=== PATIENT | male | born 1985 | race Caucasian/White ===

== ENCOUNTER 2017-06-15 11:48 | Emergency (ER) | payer SELFPAY ==
--- NOTE | 2017-06-15 13:09 | ER Document Report ---
ED Medical Screen (RME) - General Chief Complaint: Testicular Swelling Stated Complaint: RASH Time Seen by Provider: 06/15/17 13:07 Notes: pt states he has rash, pain and discoloration of his testicles. [facility] and [facility] him it was a [facility]D. He states he is a virgin and there is no way he can have an STD so he came here. TRAVEL OUTSIDE OF THE [place] IN LAST 30 DAYS: No - Related Data Allergies/Adverse Reactions: No Known Allergies Allergy (Unverified 06/15/17 11:49) Past Medical History - Social History Chew tobacco use (# tins/day): No Frequency of alcohol use: None Drug Abuse: None - Past Medical History Cardiac Medical History: Reports: Hx Hypertension - no meds Renal/ Medical History: Denies: Hx Peritoneal Dialysis Physical Exam - Vital signs Vitals: Temp Pulse Resp BP Pulse Ox 98.5 F 103 H 20 156/89 H 96 06/15/17 12:03 06/15/17 12:03 06/15/17 12:03 06/15/17 12:03 06/15/17 12:03 Course - Vital Signs Vital signs: Temp Pulse Resp BP Pulse Ox 98.5 F 103 H 20 156/89 H 96 06/15/17 12:03 06/15/17 12:03 06/15/17 12:03 06/15/17 12:03 06/15/17 12:03
--- NOTE | 2017-06-15 13:44 | ER Document Report ---
ED General - General Chief Complaint: Testicular Swelling Stated Complaint: RASH Time Seen by Provider: 06/15/17 13:07 Mode of Arrival: Ambulatory Information source: Patient Notes: 31-year-old male who has never had sexual intercourse presents with complaints of testicular redness rash. He denies any pain. Patient notes there is swelling in the area. Patient was seen at an urgent care told he had an STD. Patient denies any medical problems otherwise TRAVEL OUTSIDE OF THE [place] IN LAST 30 DAYS: No - HPI Onset: Last week Onset/Duration: Persistent Quality of pain: No pain Severity: Moderate Pain Level: Denies Associated symptoms: Other Exacerbated by: Denies Relieved by: Denies Similar symptoms previously: No Recently seen / treated by doctor: Yes - Related Data Allergies/Adverse Reactions: No Known Allergies Allergy (Unverified 06/15/17 11:49) Past Medical History - Social History Smoking Status: Never Smoker Cigarette use (# per day): No Chew tobacco use (# tins/day): No Smoking Education Provided: No Frequency of alcohol use: None Drug Abuse: None Family History: Reviewed & Not Pertinent Patient has suicidal ideation: No Patient has homicidal ideation: No - Past Medical History Cardiac Medical History: Reports: Hx Hypertension - no meds Renal/ Medical History: Denies: Hx Peritoneal Dialysis Review of Systems - Review of Systems Notes: REVIEW OF SYSTEMS: CONSTITUTIONAL : Denies fever, chills, or sweats. Denies recent illness. EENT: Denies eye, ear, throat, or mouth pain or symptoms. Denies nasal or sinus congestion or discharge. Denies throat, tongue, or mouth swelling or difficulty swallowing. CARDIOVASCULAR: Denies chest pain. Denies palpitations or racing or irregular heart beat. Denies ankle edema. RESPIRATORY: Denies cough, cold, or chest congestion. Denies shortness of breath, difficulty breathing, or wheezing. GASTROINTESTINAL: Denies abdominal pain or distention. Denies nausea, vomiting , or diarrhea. Denies blood in vomitus, stools, or per rectum. Denies black, tarry stools. Denies constipation. GENITOURINARY: Denies difficulty urinating, painful urination, burning, frequency, blood in urine, or discharge. MUSCULOSKELETAL: Denies back or neck pain or stiffness. Denies joint pain or swelling. SKIN: admits to rash HEMATOLOGIC : Denies easy bruising or bleeding. LYMPHATIC: Denies swollen, enlarged glands. NEUROLOGICAL: Denies confusion or altered mental status. Denies passing out or loss of consciousness. Denies dizziness or lightheadedness. Denies headache. Denies weakness or paralysis or loss of use of either side. Denies problems with gait or speech. Denies sensory loss, numbness, or tingling. Denies seizures. PSYCHIATRIC: Denies anxiety or stress. Denies depression, suicidal ideation, or homicidal ideation. ALL OTHER SYSTEMS REVIEWED AND NEGATIVE. Dictation was performed using [employer] voice recognition software PHYSICAL EXAMINATION: GENERAL: Well-appearing, well-nourished and in no acute distress. HEAD: Atraumatic, normocephalic. EYES: Pupils equal round and reactive to light, extraocular movements intact, sclera anicteric, conjunctiva are normal. ENT: Nares patent, oropharynx clear without exudates. Moist mucous membranes. NECK: Normal range of motion, supple without lymphadenopathy LUNGS: Breath sounds clear to auscultation bilaterally and equal. No wheezes rales or rhonchi. HEART: Regular rate and rhythm without murmurs ABDOMEN: Soft, nontender, nondistended abdomen. No guarding, no rebound. No masses appreciated. Musculoskeletal: Normal range of motion, no pitting or edema. No cyanosis. NEUROLOGICAL: Cranial nerves grossly intact. Normal speech, normal gait. Normal sensory, motor exams PSYCH: Normal mood, normal affect. SKIN: testicular and inguinal erythema consistant with candidal infection , no warmth, drainage or tenderness ocncerning for fourniers Physical Exam - Vital signs Vitals: Temp Pulse Resp BP Pulse Ox 98.5 F 103 H 20 156/89 H 96 06/15/17 12:03 06/15/17 12:03 06/15/17 12:03 06/15/17 12:03 06/15/17 12:03 Course - Re-evaluation Re-evalutation: 06/15/17 13:43 Dr Danielle garcia , concerns for fourniers vs candidiasis 06/15/17 14:23 Patient's blood work is consistent with a new onset diabetic, blood sugars 384, he will be given insulin, hemoglobin A1c is pending, we have ruled out Adilson' s and will treat for the yeast infection 06/15/17 16:14 After given insulin patient's blood sugar has improved significantly, his hemoglobin A1c is elevated, I do believe he will require both metformin and insulin but the patient wishes to defer on any injections at this time, I explained risks and benefits, Patient will be given caring for [facility] to follow-up with as well After performing a Medical Screening Examination, I estimate there is LOW risk for any life threatening rash. At this time the patient looks extremely well and there are no signs of systemic infection, however this may change at any time and the rash may change. I have reevaluated this patient multiple times and no significant life threatening changes are noted. The patient and I have discussed the diagnosis and risks, and we agree with discharging home with close follow-up with the understanding that symptoms and presentations can change. We also discussed returning to the Emergency Department immediately if new or worsening symptoms occur. We have discussed the symptoms which are most concerning (e.g., changing or worsening pain, fever, numbness, weakness, cool or painful digits) that necessitate immediate return. - Vital Signs Vital signs: Temp Pulse Resp BP Pulse Ox 98.5 F 87 16 150/93 H 97 06/15/17 12:03 06/15/17 15:46 06/15/17 15:46 06/15/17 15:46 06/15/17 15:46 - Laboratory Result Diagrams: 06/15/17 13:25 06/15/17 13:25 Laboratory results interpreted by me: 06/15/17 06/15/17 06/15/17 13:25 13:25 13:25 WBC 10.9 H Absolute Neutrophils 8.3 H Glucose 384 H POC Glucose Hemoglobin A1c % Direct Bilirubin 0.5 H Urine Protein 30 H Urine Glucose (UA) >=500 H Urine Ketones TRACE H Urine Blood SMALL H Ur Leukocyte Esterase SMALL H 06/15/17 06/15/17 13:25 15:55 WBC Absolute Neutrophils Glucose POC Glucose 260 H Hemoglobin A1c % 11.2 H Direct Bilirubin Urine Protein Urine Glucose (UA) Urine Ketones Urine Blood Ur Leukocyte Esterase Critical Care Note - Critical Care Note Total time excluding time spent on procedures (mins): 37 Comments: 37 minutes of critical care time spent in direct contact evaluating and reevaluating the patient, treating symptoms, reviewing labs and studies and speaking with family and consultants excluding any procedures Discharge - Discharge Clinical Impression: Yeast infection Diabetes Qualifiers: Diabetes mellitus type: type 2 Diabetes mellitus complication status: with skin complications Diabetes mellitus complication detail: with other skin complication Diabetes mellitus termite helper insulin use: without termite helper use Qualified Code(s): E11.628 - Type 2 diabetes mellitus with other skin complications Condition: Stable Disposition: HOME, SELF-CARE Instructions: Diabetes ([facility]), Control of Diabetes During Illness ([facility]) Prescriptions: Metformin HCl 1,000 mg PO BID #60 tablet Nystatin 30 gm TP BID 30 Days oint...g. Forms: Return to Work Referrals: LÓPEZ OCHOA MD [NO LOCAL MD] - Follow up tomorrow
[2017-06-15 13:45] LABS: ABSOLUTE BASOPHILS # (AUTO) 0.1 10^3/uL (0.0-0.2); ABSOLUTE EOSINOPHILS # (AUTO) 0.1 10^3/uL (0.0-0.6); ABSOLUTE LYMPHOCYTES (AUTO) 1.8 10^3/uL (0.5-4.7); ABSOLUTE MONOCYTES (AUTO) 0.7 10^3/uL (0.1-1.4); ABSOLUTE NEUT (AUTO) 8.3 10^3/uL (1.7-8.2); BASOPHILS % (AUTO) 0.8 % (0-2); EOSINOPHILS % (AUTO) 1.2 % (0-6); HEMATOCRIT 44.8 % (37.9-51.0); HEMOGLOBIN 15.1 g/dL (13.5-17.0); MEAN CORPUSCULAR HEMOGLOBIN 27.7 pg (27.0-33.4); MEAN CORPUSCULAR HGB CONC 33.7 g/dL (32.0-36.0); MEAN CORPUSCULAR VOLUME 82 fl (80-97); MONOCYTES % (AUTO) 6.3 % (3-13); PLATELET COUNT 218 10^3/uL (150-450); RED BLOOD COUNT 5.45 10^6/uL (4.35-5.55); SEGMENTED NEUTROPHILS % (AUTO) 75.7 % (42-78); TOTAL CELLS COUNTED % (AUTO) 100 %; WHITE BLOOD COUNT 10.9 10^3/uL (4.0-10.5)
[2017-06-15 13:51] LABS: APPEARANCE,URINE SLIGHTLY-CLOUDY; BILIRUBIN,URINE NEGATIVE (NEGATIVE); COLOR,URINE YELLOW; GLUCOSE, URINE >=500 mg/dL (NEGATIVE); KETONES,URINE TRACE mg/dL (NEGATIVE); LEUKOCYTE ESTERASE,URINE SMALL (NEGATIVE); NITRITE,URINE NEGATIVE (NEGATIVE); PROTEIN,URINE 30 mg/dL (NEGATIVE); URINE SPECIFIC GRAVITY 1.037; UROBILINOGEN,URINE NEGATIVE mg/dL (<2.0)
[2017-06-15 14:06] LABS: ALANINE AMINOTRANSFERASE 58 U/L (21-72); ALBUMIN 4.2 g/dL (3.5-5.0); ALKALINE PHOSPHATASE 109 U/L (38-126); ANION GAP 13 (5-19); ASPARTATE AMINO TRANSFERASE 26 U/L (17-59); BILIRUBIN,DIRECT 0.5 mg/dL (0.0-0.4); BILIRUBIN,TOTAL 1.1 mg/dL (0.2-1.3); BLOOD UREA NITROGEN 12 mg/dL (7-20); CALCIUM 9.5 mg/dL (8.4-10.2); CARBON DIOXIDE 25 mmol/L (22-30); CHLORIDE 101 mmol/L (98-107); GLUCOSE 384 mg/dL (75-110); POTASSIUM 4.3 mmol/L (3.6-5.0); SODIUM 138.7 mmol/L (137-145); TOTAL PROTEIN 6.9 g/dL (6.3-8.2)
[2017-06-15] MEDS ORDERED: INSULIN REG, HUMAN 100 UNIT/ML 3 ML VIAL (PYX) SUBCUT ONE (14:15)
[2017-06-15 15:51] VITALS: BP 150/93
--- NOTE | 2017-06-15 17:10 | PDOC CONSULTATION ---
Consultation Consult reason:: Rule out necrotizing fasciitis History of Present Illness History of Present Illness: GASTON LOWERY is a 31 year old male Please see HPI per Dr. Ye2 emergency department. Apparently the patient was recently diagnosed with diabetes mellitus. Past Medical History Cardiac Medical History: Reports: Hypertension - no meds Social History Smoking Status: Never Smoker Family History Family History: Reviewed & Not Pertinent Parental Family History Reviewed: Yes Children Family History Reviewed: Yes Sibling(s) Family History Reviewed.: Yes Medication/Allergy Home Medications: Metformin HCl 1,000 mg PO BID #60 tablet 06/15/17 Nystatin 30 gm TP BID 30 Days oint...g. 06/15/17 Allergies/Adverse Reactions: No Known Allergies Allergy (Unverified 06/15/17 11:49) Physical Exam Vital Signs: Temp Pulse Resp BP Pulse Ox 98.5 F 87 16 150/93 H 97 06/15/17 12:03 06/15/17 15:46 06/15/17 15:46 06/15/17 15:46 06/15/17 15:46 Intake & Output 06/14/17 06/15/17 06/16/17 06:59 06:59 06:59 Weight 154.9 kg General appearance: PRESENT: no acute distress, other GI/Abdominal exam: PRESENT: other - Patient's lower pelvic region, and intertriginous nodes examined as well as the scrotum. There is erythematous maculopapular rash with easy drainage. The penis is receded within the scrotum Skin exam: PRESENT: other - Is no evidence of cellulitis a sending infection etc. Results Laboratory Results: 06/15/17 13:25 06/15/17 13:25 06/15/17 06/15/17 06/15/17 13:25 13:25 13:25 WBC 10.9 H RBC 5.45 Hgb 15.1 Hct 44.8 MCV 82 MCH 27.7 MCHC 33.7 RDW 14.0 Plt Count 218 Seg Neutrophils % 75.7 Lymphocytes % 16.0 Monocytes % 6.3 Eosinophils % 1.2 Basophils % 0.8 Absolute Neutrophils 8.3 H Absolute Lymphocytes 1.8 Absolute Monocytes 0.7 Absolute Eosinophils 0.1 Absolute Basophils 0.1 Sodium 138.7 Potassium 4.3 Chloride 101 Carbon Dioxide 25 Anion Gap 13 BUN 12 Creatinine 0.63 Est GFR ( Amer) > 60 Est GFR (Non-Af Amer) > 60 Glucose 384 H Calcium 9.5 Total Bilirubin 1.1 AST 26 ALT 58 Alkaline Phosphatase 109 Total Protein 6.9 Albumin 4.2 Urine Color YELLOW Urine Appearance SLIGHTLY-CLOUDY Urine pH 6.0 Ur Specific [place] 1.037 Urine Protein 30 H Urine Glucose (UA) >=500 H Urine Ketones TRACE H Urine Blood SMALL H Urine Nitrite NEGATIVE Ur Leukocyte Esterase SMALL H Urine WBC (Auto) 25 Urine RBC (Auto) 21 Assessment & Plan - Diagnosis (1) Yeast infection Is this a current diagnosis for this admission?: Yes Plan: Agree with Dr. Urias; no clinical evidence for necrotizing fasciitis. Cutaneous manifestation of fungal infection weekly. Recommendations: 1. Treat with topical antifungal's. 2. Suggest washing with Hibiclens scrub brushes. 3. Return to medical care on an as-needed basis
== END 2017-06-15 16:12 | disposition home or self-care (01) ==
LOC: ER 11:48
DX: B37.2 Candidiasis of skin and nail (principal); E11.628 Type 2 diabetes mellitus with other skin complications; I10 Essential (primary) hypertension
CPT/HCPCS: 99284; 36415; 82962; 85025; 80053; 81001; 83036; J1815